=== PATIENT | female | born 2000 | race Caucasian/White ===

== ENCOUNTER 2019-01-31 03:49 | Emergency (ER) | payer SELFPAY ==
[~2019-01-31] VITALS: Ht 167.6 cm; Wt 63.5 kg
--- NOTE | 2019-01-31 04:10 | NUR ---
Pt. ambulated into ED BIB two females who found her intoxicated and vomiting, pt. reports drinking alcohol earlier in the evening, has no complaints at this time,
[2019-01-31] MEDS ORDERED: ONDANSETRON ODT 4 MG TAB.RAPDIS SL ONE (04:15)
[2019-01-31] MEDS ORDERED: ONDANSETRON ODT 4 MG TAB.RAPDIS ONE (04:15)
--- NOTE | 2019-01-31 04:19 | NUR ---
Patient discharged to home in stable conditon. Written and verbal after care instructions given. Patient verbalizes understanding of instructions. Pt. d/c w/ prescription per MD order, d/c papers signed, all belongings w/ pt., ID band removed, ambulated off unit w/ steady gait, instructed not to drive, left w/ two female companions, NAD
== END 2019-01-31 04:21 | disposition home or self-care (01) ==
LOC: ER 03:49
DX: R11.2 Nausea with vomiting, unspecified (principal); F10.10 Alcohol abuse, uncomplicated; Y90.9 Presence of alcohol in blood, level not specified
CPT/HCPCS: A4663; Q0162